=== PATIENT | female | born 1985 | race American Indian/Alaskan Native ===

== ENCOUNTER 2020-06-17 13:47 | Outpatient (CLI) | payer OTHER ==
--- NOTE | 2020-06-17 15:57 | Fluoroscopy Report ---
BARIUM SWALLOW Indication: GASTRO-ESOPHAGEAL REFLUX DISEASE WITHOUT ESOOPHAGITIS. Technique: Single contrast barium technique utilized to evaluate the esophagus. FINDINGS: To begin the exam, swallowing was evaluated in the lateral position under direct fluorosco py. Swallowing was normal. No mucosal irregularity, mass, mass effect, or critical stenosis. There were no abnormal tertiary c ontractions as seen with dysmotility. No gastroesophageal reflux. IMPRESSION: Unremarkable exam. Fluoroscopic time: 1.9 minutes Number of fluoroscopic images: 39 Signer Name: Pernell Ulloa Jr, MD Signed: 06/17/2020 3:53 PM Workstation Name: [id number]
== END 2020-06-17 13:48 | disposition home or self-care (01) ==
LOC: FLUORO 13:47
PROVIDERS: ATTEND Surgery
DX: K21.9 Gastro-esophageal reflux disease without esophagitis (principal)
CPT/HCPCS: 74220

== ENCOUNTER → 2020-06-17 | Outpatient (CLI) | payer OTHER | END | disposition home or self-care (01) | LOC: SLR 11:00 | PROVIDERS: ATTEND Surgery | DX: G47.30 Sleep apnea, unspecified (principal) | CPT/HCPCS: G0399 ==

== ENCOUNTER 2020-07-12 08:30 | Day surgery (SDC) | payer OTHER ==
[~2020-07-12 08:30] MED LIST: SODIUM CHLORIDE 0.9% 1000 ML 1,000 ML IV SCH
--- NOTE | 2020-07-12 09:19 | Anesthesia Day of Surgery ---
Anesthesia Day of Surgery - Day of Surgery Patient Examined: Yes Patient H&P Reviewed: Yes Patient is NPO: Yes
--- NOTE | 2020-07-12 09:20 | Anesthesia Consultation ---
Anesthesia Consult and Med Hx Date of service: 07/12/20 - Airway Anesthetic Teeth Evaluation: Good (Braces) ROM Head & Neck: Adequate Mental/Hyoid Distance: Adequate Mallampati Class: Class II Intubation Access Assessment: Good - Pre-Operative Health Status ASA Pre-Surgery Classification: ASA3 Proposed Anesthetic Plan: MAC - Pulmonary Hx Respiratory Symptoms: No (+2FS) Hx Sleep Apnea: No - Cardiovascular System Hx Hypertension: Yes (Pt reports negative cardiac w/u) - Gastrointestinal Hx Gastroesophageal Reflux Disease: Yes - Endocrine Hx Renal Disease: No Hx Liver Disease: No Hx Non-Insulin Dependent Diabetes: No - Hematic Hx Sickle Cell Disease: No - Other Systems Hx Obesity: Yes
[2020-07-12] MEDS ORDERED: fentaNYL 100 MCG/2 ML INJ ONE (09:56)
[2020-07-12] MEDS ORDERED: propofoL 200 MG/20 ML VIAL IV ONE (09:56)
[2020-07-12] MEDS ORDERED: LIDOCAINE MPF (2%) 20 MG/1 ML VIAL 5 ML ONE (09:56)
[2020-07-12] MEDS ORDERED: ONDANSETRON 4 MG/2 ML INJ ONE (09:56)
--- NOTE | 2020-07-12 10:19 | Discharge Summary ---
Providers - Providers Date of Admission: 07/12/2020 Date of discharge: 07/12/20 Attending physician: NEGIN GÓMEZ MD Primary care physician: CHRIS SAPP Hospitalization Reason for admission: pre-op egd for bariatric surgery Condition: Good Procedures: egd with bx Hospital course: Pt presented for a pre-op EGD as part of planning for up coming bariatric surgery. Procedure was uneventful and pt recovered well and was discharged to home. Disposition: DC- TO HOME OR SELFCARE Final Discharge Diagnosis (Prints w/discharge instructions): morbid obesity, dyspepsia Core Measure Documentation - Palliative Care Palliative Care/ Comfort Measures: Not Applicable - Core Measures Any of the following diagnoses?: none Exam - Physical Exam Narrative exam: unchanged from pre-op Plan Diet: low carbohydrate Follow up with: CHRIS SAPP MD [Primary Care Provider] - 7 Days
--- NOTE | 2020-07-12 10:21 | Operative Report ---
Operative Report Operative Report: DATE: 07/12/2020 SURGERY: Upper endoscopy. SURGEON: Magdalena Cortes M.D. PROCEDURE: EGD with biopsy PRE OP DX: morbid obesity, GERD POST OP DX: morbid obesity, GERD TYPE OF ANESTHESIA: MAC. ESTIMATED BLOOD LOSS: None. COMPLICATIONS: None. SPECIMENS REMOVED: antral biopsy FINDINGS: 1. Small hiatal hernia. 2. Otherwise, normal esophagus, stomach and first portion of duodenum. INDICATIONS:INDICATION FOR PROCEDURE: Patient is a 35-year-old female with a long history of morbid obesity. She is planned to have a weight loss procedure and is here for preoperative planning EGD. PROCEDURE DETAILS: After consent was reviewed, patient was taken back to the operating room where patient was placed in the left lateral decubitus position and a bite block was placed in the mouth. After a time-out was called, MAC anesthesia was initiated. I then passed the endoscope into her oropharynx, into her esophagus, visualized the entire esophagus, which was all within normal limits. Z-line was noted to about 36 cm from incisors. I then visualized the stomach and the first portion of the duodenum and there were no abnormalities I could clearly visualize except for antral gastritis. A cold forceps biopsy of the antrum was taken and will be sent to pathology to evaluate for H.pylori. I then retroflexed the scope in the stomach and visualized the hiatus and I could see a small hiatal hernia. I then desufflated the stomach and removed the endoscope. Patient tolerated procedure well and was transferred to recovery room in good and stable condition.
[2020-07-12 10:51] VITALS: BP 123/64
--- NOTE | 2020-07-12 14:59 | Post Anesthesia Evaluation ---
- Post Anesthesia Evaluation Patient Participated: Yes Airway Patent: Yes Stable Respiratory Function: Yes Nausea/Vomiting: No Temp > 96.8F: Yes Pain Manageable: Yes Adequeate Hydration: Yes Anesthesia Complications: No Block Receding Appropriately: Not Applicable Patient on Ventilator: No
== END 2020-07-12 11:35 | disposition home or self-care (01) ==
LOC: GIO 08:30
PROVIDERS: ATTEND Surgery
DX: K21.9 Gastro-esophageal reflux disease without esophagitis (principal); E66.01 Morbid (severe) obesity due to excess calories; K44.9 Diaphragmatic hernia without obstruction or gangrene; K29.70 Gastritis, unspecified, without bleeding; I10 Essential (primary) hypertension; Z68.41 Body mass index [BMI] 40.0-44.9, adult
CPT/HCPCS: 43239; 88305; 88342; J2405; J2704; J3010; J7030

== ENCOUNTER → 2020-07-17 | Outpatient (CLI) | payer OTHER | END | disposition home or self-care (01) | LOC: SLR 11:00 | PROVIDERS: ATTEND Surgery | DX: G47.33 Obstructive sleep apnea (adult) (pediatric) (principal) | CPT/HCPCS: 95811 ==

== ENCOUNTER 2020-08-21 10:25 | Emergency (ER) | payer OTHER ==
--- NOTE | 2020-08-21 11:17 | Event Note ---
ED Screening Note Date of service: 08/21/20 Time: 11:15 ED Screening Note: 35-year-old female patient with history of recent gastric sleeve surgery presents to the emergency department complaints of right lower quadrant abdominal pain. Patient underwent surgery on August 01. She was supposed to f ollow-up with her surgeon 2 days ago, but was unable to go to her appointment. No known surgical complications. Last bowel movement was this morning. General: Awake, appropriately interactive, no acute distress. Neck: Supple. Full range of motion intact. Cardiovascular: Normal peripheral perfusion. Pulmonary: No respiratory distress. Patient is speaking normally without use of accessory muscles. Skin: No apparent rashes or lesions. Neurological: No facial asymmetry. Speech is clear. Follows commands. Patient is alert and oriented. Musculoskeletal: Moves all four extremities spontaneously with normal range of motion. Psych: Cooperative. Appropriate mood and affect. I have greeted and performed a focused rapid initial assessment of this patient. A comprehensive ED assessment and evaluation of the patient, analysis of all test results, and completion of the medical decision-making process will be conducted by additional ED providers. This initial assessment/diagnostic orders/clinical plan/treatment(s) is/are subject to change based on patients health status, clinical progression and re-assessment. Further treatment and workup at subsequent clinical provider's discretion. Patient/guardian urged not to elope from the ED as their condition may be serious if not clinically assessed and managed.
[2020-08-21 11:50] LABS: Basophils % (Auto) 0.7 % (0.0-1.8); Eosinophils # (Auto) 0.1 K/mm3 (0.0-0.4); Eosinophils % (Auto) 1.1 % (0.0-4.3); Hemoglobin 11.3 gm/dl (10.1-14.3); Lymphocytes # (Auto) 2.1 K/mm3 (1.2-5.4); Lymphocytes % (Auto) 41.7 % (13.4-35.0); Mean Corpuscular HGB Conc 33 % (30-34); Mean Corpuscular Volume 84 fl (79-97); Monocytes # (Auto) 0.4 K/mm3 (0.0-0.8); Monocytes % (Auto) 7.8 % (0.0-7.3); Platelet Count 295 K/mm3 (140-440); Red Blood Count 4.05 M/mm3 (3.65-5.03); Red Cell Distribution Width 16.8 % (13.2-15.2)
[2020-08-21 12:00] LABS: Bacteria,Urine 1+ /HPF (Negative); Bilirubin,Urine NEG (Negative); Blood,Urine NEG (Negative); Color,Urine Yellow (Yellow); Mucus,Urine 1+ /HPF; Urobilinogen,Urine < 2.0 mg/dL (<2.0)
[2020-08-21 12:01] LABS: Alanine Aminotransferase 10 units/L (7-56); Albumin 3.7 g/dL (3.9-5); BUN/Creatinine Ratio 11; Blood Urea Nitrogen 9 mg/dL (7-17); Calcium 8.8 mg/dL (8.4-10.2); Hemolysis Index 0
--- NOTE | 2020-08-21 12:08 | Emergency Department Report ---
ED Abdominal Pain HPI - General Chief Complaint: Abdominal Pain Stated Complaint: PAINFUL TO MOVE Time Seen by Provider: 08/21/20 11:51 Source: patient Mode of arrival: Ambulatory Limitations: No Limitations - History of Present Illness Initial Comments: This is a 35-year-old female who complains of abdominal pain especially in the right lower to mid quadrant for the past 3 or so days. She states that once she regurgitated her food and that she has had minimal diarrhea. She states her oral intake has been diminished and thus her bowel movements have been decreased. She otherwise states that her bowel movements have been essentially normal in amount considering. She does not have any persistent nausea. She states that she was taking something for pain since the surgery on August 01. Patient states that she had a gastric sleeve done at this facility. However review of the EMR does not indicate a procedure here on August 01. There was at preoperative EGD done at the end of June however. Patient has not been in touch with Dr. Cortes concerning the increased pain that she has been experiencing for the past 3 days. She states she has an appointment coming up. Patient is questioning me concerning what a CT scan would show. I explained to her that it might be useful in the setting. I want the procedure involved. I told the patient that we would give her something for pain and I would review her laboratory studies and probably proceed with CT examination. She declined pain medication. She also declined medicine for nausea stating "I have my own". I requested that registration investigate to see if the patient has another [facility] record number. Indeed she did: [id number] Under that number I did find that the patient had an apparently on eventful Procedure: 1. laparoscopic sleeve gastrectomy, 2. hiatal hernia repair On August 01. Complaint: abdominal pain -: Gradual, week(s) (Worse over the past 3 or so days) Location: RLQ Radiation: none Migration to: no migration Severity: moderate Quality: aching Consistency: constant Improves With: nothing Worsens With: movement Context: other (Status post gastric sleeve) Associated Symptoms: denies other symptoms, nausea, diarrhea (As above indicated but not persistent) - Related Data Home Medications Medication Instructions Recorded Confirmed Last Taken Losartan-Hctz 100-25 mg Tab 100 07/12/20 07/12/20 07:00 Previous Rx's Medication Instructions Recorded Last Taken Type oxyCODONE /ACETAMINOPHEN [Percocet 1 tab PO Q6HR PRN #5 tablet 08/21/20 Unknown Rx 5/325] Allergies Allergy/AdvReac Type Severity Reaction Status Date / Time No Known Allergies Allergy Unverified 07/11/20 13:35 ED Review of Systems ROS: Stated complaint: PAINFUL TO MOVE Other details as noted in HPI Constitutional: denies: chills, fever Eyes: denies: eye pain, eye discharge, vision change ENT: denies: ear pain, throat pain Respiratory: denies: cough, shortness of breath, wheezing Cardiovascular: denies: chest pain, palpitations Endocrine: no symptoms reported Gastrointestinal: as per HPI, abdominal pain, nausea, diarrhea Genitourinary: denies: urgency, dysuria Musculoskeletal: back pain (States chronic and related). denies: joint swelling, arthralgia Skin: denies: rash, lesions Neurological: denies: headache, weakness, paresthesias Psychiatric: denies: anxiety, depression Hematological/Lymphatic: denies: easy bleeding, easy bruising ED Past Medical Hx - Past Medical History Previous Medical History?: Yes Hx Hypertension: Yes (Pt reports negative cardiac w/u) Hx Liver Disease: No Hx Renal Disease: No Hx Sickle Cell Disease: No - Surgical History Past Surgical History?: Yes Additional Surgical History: Gastric sleeve 08/07/20 - Social History Smoking Status: Never Smoker Substance Use Type: None - Medications Home Medications: Home Medications Medication Instructions Recorded Confirmed Last Taken Type Losartan-Hctz 100-25 mg Tab 100 07/12/20 07/12/20 07:00 History oxyCODONE /ACETAMINOPHEN [Percocet 1 tab PO Q6HR PRN #5 tablet 08/21/20 Unknown Rx 5/325] ED Physical Exam - General Limitations: No Limitations General appearance: alert, in no apparent distress - Head Head exam: Present: atraumatic, normocephalic - Eye Eye exam: Present: normal appearance. Absent: scleral icterus - ENT ENT exam: Present: mucous membranes moist - Neck Neck exam: Present: normal inspection - Respiratory Respiratory exam: Present: normal lung sounds bilaterally. Absent: respiratory distress - Cardiovascular Cardiovascular Exam: Present: regular rate, normal rhythm. Absent: systolic murmur, diastolic murmur, rubs, gallop - GI/Abdominal GI/Abdominal exam: Present: soft, tenderness (Right mid quadrant poorly localized), normal bowel sounds. Absent: distended, guarding, rebound, rigid, organomegaly, mass, bruit, pulsatile mass, hernia - Extremities Exam Extremities exam: Present: normal inspection - Back Exam Back exam: Present: normal inspection - Neurological Exam Neurological exam: Present: alert, oriented X3, CN II-XII intact. Absent: motor sensory deficit - Psychiatric Psychiatric exam: Present: normal affect, normal mood - Skin Skin exam: Present: warm, dry, intact, normal color. Absent: rash ED Course Vital Signs 08/21/20 08/21/20 10:36 12:36 Temperature 98.8 F Pulse Rate 90 71 Respiratory 16 Rate Blood Pressure 121/73 119/75 [Right] O2 Sat by Pulse 98 98 Oximetry - Reevaluation(s) Reevaluation #1: Patient comfortable, smiling and talking on her cell phone. Her work-up today is essentially negative for any emergency medical conditions. She is appropriate for follow-up with Dr. Cortes. I offered to give her a prescription for tramadol which she declined. She requested Percocet. I explained to her that emergency physicians could only give a few of that medication. Follow up with Dr. Cortes is recommended. 08/21/20 14:05 ED Medical Decision Making - Lab Data Result diagrams: 08/21/20 11:16 08/21/20 11:16 Laboratory Results - last 24 hr 08/21/20 08/21/20 08/21/20 11:16 11:16 11:16 WBC 5.0 RBC 4.05 Hgb 11.3 Hct 34.0 MCV 84 MCH 28 MCHC 33 RDW 16.8 H Plt Count 295 Lymph % (Auto) 41.7 H [place] % (Auto) 7.8 H Eos % (Auto) 1.1 Baso % (Auto) 0.7 Lymph # (Auto) 2.1 [place] # (Auto) 0.4 Eos # (Auto) 0.1 Baso # (Auto) 0.0 Seg Neutrophils % 48.7 Seg Neutrophils # 2.4 Sodium 138 Potassium 4.0 Chloride 103.0 Carbon Dioxide 27 Anion Gap 12 BUN 9 Creatinine 0.8 Estimated GFR > 60 BUN/Creatinine Ratio 11 Glucose 84 Calcium 8.8 Magnesium 2.00 Total Bilirubin 0.20 AST 11 ALT 10 Alkaline Phosphatase 80 Total Protein 7.4 Albumin 3.7 L Albumin/Globulin Ratio 1.0 Lipase 26 HCG, Qual Negative Urine Color Urine Turbidity Urine pH Ur Specific [place] Urine Protein Urine Glucose (UA) Urine Ketones Urine Blood Urine Nitrite Urine Bilirubin Urine Urobilinogen Ur Leukocyte Esterase Urine WBC (Auto) Urine RBC (Auto) U Epithel Cells (Auto) Urine Bacteria (Auto) Urine Mucus 08/21/20 Unknown WBC RBC Hgb Hct MCV MCH MCHC RDW Plt Count Lymph % (Auto) [place] % (Auto) Eos % (Auto) Baso % (Auto) Lymph # (Auto) [place] # (Auto) Eos # (Auto) Baso # (Auto) Seg Neutrophils % Seg Neutrophils # Sodium Potassium Chloride Carbon Dioxide Anion Gap BUN Creatinine Estimated GFR BUN/Creatinine Ratio Glucose Calcium Magnesium Total Bilirubin AST ALT Alkaline Phosphatase Total Protein Albumin Albumin/Globulin Ratio Lipase HCG, Qual Urine Color Yellow Urine Turbidity Slightly-cloudy Urine pH 6.0 Ur Specific [place] 1.026 Urine Protein 30 mg/dl Urine Glucose (UA) Neg Urine Ketones Neg Urine Blood Neg Urine Nitrite Neg Urine Bilirubin Neg Urine Urobilinogen < 2.0 Ur Leukocyte Esterase Neg Urine WBC (Auto) 2.0 Urine RBC (Auto) 2.0 U Epithel Cells (Auto) 19.0 H Urine Bacteria (Auto) 1+ Urine Mucus 1+ Critical care attestation.: If time is entered above; I have spent that time in minutes in the direct care of this critically ill patient, excluding procedure time. ED Disposition Clinical Impression: History of bariatric surgery Abdominal pain Qualifiers: Abdominal location: right lower quadrant Qualified Code(s): R10.31 - Right lower quadrant pain Disposition: TO HOME OR SELFCARE Is pt being admited?: No Does the pt Need Aspirin: No Condition: Stable Instructions: Abdominal Pain (ED), Abdominal Pain, Adult, [id number] Additional Instructions: Follow-up with For further care and evaluation. Return any acute change or problem as needed. Prescriptions: oxyCODONE /ACETAMINOPHEN [Percocet 5/325] 1 tab PO Q6HR PRN #5 tablet PRN Reason: Pain Referrals: CHRIS SAPP MD [Primary Care Provider] - 2-3 Days Time of Disposition: 14:07
[2020-08-21] MEDS ORDERED: SODIUM CHLORIDE 0.9% 1000 ML 1,000 ML IV ONE (12:21)
--- NOTE | 2020-08-21 13:41 | Cat Scan Report ---
CT ABDOMEN AND PELVIS WITH CONTRAST HISTORY: Right mid abdominal pain, recent gastric surgery COMPARISON: None TECHNIQUE: Routine abdominal and pelvic CT exam performed following intravenous contrast administrat ion.. All CT scans at this location are performed using CT dose reduction for ALARA by means of autom ated exposure control. FINDINGS: CT ABDOMEN: Lung Bases: No significant abnormality. Liver: No significant abnormality. Biliary: No significant abnormality. Spleen: No significant abnormality. Unenlarged. Pancreas: No significant abnormality. Adrenals: No significant abnormality. Kidneys: No significant abnormality. Lymphatics: No lymphadenopathy. Vasculature: No significant abnormality. Bowel/Peritoneum: There is a small amount of free fluid in the pelvis without focal well-defined flui d collection. There is no free air or obstruction. Stomach appears grossly normal following gastric s leeve surgery. Normal appendix. CT PELVIC: : No additional abnormality. Lymphatics: No lymphadenopathy. Osseous Structures: No aggressive appearing osseous lesions. Additional Findings: None IMPRESSION: 1. Small amount of free fluid in the pelvis is most likely physiologic. 2. Stomach appears grossly normal following gastric sleeve surgery. No acute findings. Signer Name: Jacinto Yanez MD Signed: 08/21/2020 1:37 PM Workstation Name: [id number]
[2020-08-21 14:18] VITALS: BP 122/70
== END 2020-08-21 14:18 | disposition home or self-care (01) ==
LOC: ED 10:25
DX: R10.31 Right lower quadrant pain (principal); R19.7 Diarrhea, unspecified; Z98.890 Other specified postprocedural states; I10 Essential (primary) hypertension; Z79.899 Other long term (current) drug therapy
CPT/HCPCS: 36415; 74177; 80053; 81001; 83690; 83735; 84703; 85025; 96360; 96361; 99284; J7030; Q9967